=== PATIENT | male | born 1960 | race Caucasian/White ===

== ENCOUNTER 2016-12-08 23:35 | Inpatient (IN) | payer OTHER ==
--- NOTE | ~2016-12-08 | A ---
[facility] Nutrition Therapy DATE: 12/09/16 Patient: MARIE DORMAN Physician: CHAZ Address: [address] [facility] Room/Bed: [address] [place] [address], Zip: [place] [address] Admit Date: 12/09/16 Date of : 58 Height: 6 1 Weight: NUTRITIONAL ASSESSMENT: REASON: 4 NUTRITION RISK PT RE: WEIGHT LOSS, ALSO CONSULT PT IS 56 Y.O. MALE ADMITTED FOR PNEUMONIA PMH: COPD, TOBACCO ABUSE, RECENT (R) LUNG MASS Anthropometrics: 6'1", WT: 162# (74 KG), BMI: 21.4, 88%IBW Labs: GLU: 213, NA+:134, ALB: 3.3, AST: 55, ALT: 76, PRE-ALB: 13.2 Meds: ZOFRAN, LAXATIVE, NACL I/O & Bowel function: 600/400 Skin Integrity: DRY SKIN NOTED ALL OVER BODY Estimated Nutrition Needs: INCREASED NEEDS 2' WEIGHT LOSS NOTED, DECREASED PO INTAKE AND APPETITE, CURRENT CLINICAL CONDITION/CURRENT DIAGNOSIS Assessment: CHART REVIEWED AND EVENTS NOTED. PT SEEN FOR 4 NUTRITION RISK PT RE: WEIGHT LOSS, ALSO CONSULT RECEIVED. PT REPORTS DECREASED PO INTAKE 2' DECREASED APPETITE PAST MONTH D/T N/V. PT REPORTS LOSING ~10-15# BUT UNABLE TO KNOW TIME FRAME OF WEIGHT LOSS. PT ADDS UBW IS ~175-180#. PER RN AND CHART, (R) LUNG MASS REVEALED. THIS RD ENCOURAGED ADEQUATE KCAL AND PROTEIN INTAKE (SMALL FREQUENT MEALS + SUPPLEMENT INTAKE), PT AGREED TO ENSURE SHAKES TID W/MEALS, RD TO ORDER. PT REPORTED NO DIET QUESTIONS AT THIS TIME. RD TO FOLLOW. Dx: INADEQUATE PROTEIN-ENERGY INTAKE R/T DECREASED APPETITE, CURRENT DIAGNOSIS, CURRENT CLINICAL CONDITION AEB WEIGHT LOSS NOTED, PT REPORT ABOVE. Intervention: 1. ICJD-NH-PRXK DIGEST DIET 2. ENSURE SHAKES TID 3. RD CONSULT Monitoring, Evaluation and Goals: 1. ORAL INTAKE; CONSUME/TOLERATE >50% OF MEALS AND SUPPLEMENTS 2. WEIGHTS; PREVENT FURTHER UNINTENTIONAL WEIGHT LOSS 3. LABS; WNL MONITOR GOALS ABOVE Recommendations: [facility] Nutrition Therapy DATE: 12/09/16 Patient: MARIE DORMAN Physician: CHAZ Address: [address] Room/Bed: [address] [place] [address], Zip: [place] [address] Admit Date: 12/09/16 Date of : 58 Height: 6 1 Weight: 1. PLEASE ORDER STRAWBERRY OR HEBERT ENSURE SHAKES TID W/MEALS, PT REQUIRES ADDITIONAL PROTEIN AND KCAL 2. ADD REGULAR DIET TO CURRENT DIET ORDER 3. APPRECIATE FAMILY AND STAFF TO ENCOURAGE ADEQUATE PO INTAKE RD WILL F/U PER PROTOCOL PT IS MODERATELY COMPROMISED Respectfully, GREGORIO SANTOS MS, RD, LD Food and Nutritional Services [facility] cc: client file
--- NOTE | ~2016-12-08 | OR ---
Unit #: [id number] #: [id number] Patient: MARIE DORMAN [id number] [address] [address] [id number] MR#: [id number] NAME: MARIE DORMAN ROOM: 238 Date of Procedure: 12/10/2016 Admission Date: 12/09/2016 Surgeon: Akhil Torre M.D. : 1960 Attending Physician: Anna Rahman M.D. Primary Care Physician: Consuelo Beltran M.D. OPERATIVE REPORT PROCEDURE PERFORMED Flexible fiberoptic bronchoscopy. INDICATIONS FOR PROCEDURE Abnormal CAT scan. FINDINGS Tumor right upper lobe with near occlusion, certainly narrowing of the anterior and posterior segments. There is narrowing also right middle lobe. SEDATION MAC. COMPLICATIONS Zero. CONDITION AFTER PROCEDURE Stable to recovery room. DESCRIPTION OF PROCEDURE The patient was brought to the endoscopy suite and monitored for heart rate, blood pressure, saturations, and end-tidal CO2. Sedated via MAC. Anesthetized with 2% lidocaine in both nares. Viscous lidocaine was applied to his right naris. Bronchoscope was introduced without difficulty. Vocal cords were visualized. There were normal configuration motion, anesthetized x2. Main trachea was intubated. Main airways were anesthetized. Left-sided airways were unremarkable except evidence of chronic bronchitis. Right-sided airways showed significant tumor with obstruction anterior segment and narrowing of the posterior and apical segments of the right upper lobe. Right middle lobe was narrowed as well. There was also some evidence of submucosal involvement. This area was photographed, brushed, biopsied, and washed. Hemostasis was confirmed by observation. Bronchoscope was removed without difficulty, and the patient was in stable condition postprocedure. Dictated by... Akhil Torre M.D. ISMAEL/mikil Unit #: [id number] #: [id number] Patient: MARIE DORMAN TD: 12/10/2016 18:29 JOB #: [id number] OPERATIVE REPORT Page 1 of 1 X Akhil Torre MD PROCEDURE OPERATIVE NOTE
--- NOTE | ~2016-12-08 | CT2 ---
[facility] A Service of [facility] & [facility] RADIOLOGY TEXT RESULTS PATIENT: MARIE DORMAN LOCATION: C2A 238-01 : [birth year] UNIT #: [id number] AGE: [address]: Anna Rahman MD SEX: M ORDER DR: [id number] [facility] [address] [facility]. [place], [place] [address] [id number] I MR#: [id number] Acc #: [id number] NAME: MARIE DORMAN : 1960 SEX: M STUDY DATE/TIME: 12/09/2016 13:02 UNIT: C2A ROOM: 238 STUDY DESCRIPTION: CT Abd and Pelv W Cont Attending Physician: Anna Rahman M.D. Ordering Physician: Anna Rahman M.D. Primary Care Physician: Consuelo Beltran M.D. MEDICAL IMAGING REPORT This report is preliminary unless electronic signature is present EXAM CT abdomen and pelvis with contrast. HISTORY Nausea, vomiting, and hemoptysis x1 month, recently diagnosed with lung mass. TECHNIQUE Axial images performed through the abdomen and pelvis following IV and oral contrast. Multiplanar reconstructed images reviewed at a workstation. This CT exam was performed with one or more of the following radiation dose reduction techniques: automatic exposure control, adjustment of mA and/or kV according to patient size, and iterative reconstruction. FINDINGS ABDOMEN: The lung bases demonstrate emphysematous changes. Liver, gallbladder unremarkable. There is a 2.2 x 1.8 cm low-attenuation lesion within the spleen could represent an incidental benign lesion such as hemangioma, though given the patient's lung mass, metastatic lesion not excluded. Pancreas, kidneys and adrenal glands unremarkable. Fluid and food debris distends the stomach. Small bowel unremarkable. Moderate amount of colonic stool. Retroperitoneum unremarkable except for a few shotty lymph nodes. PELVIS: Bladder appears normal. The osseous structures unremarkable except for several Schmorl nodes in lower thoracic spine. Extrathoracic soft tissues appear normal. IMPRESSION 2.2 cm low-attenuation lesion in the anterior lateral aspect of the spleen probably represents an incidental lesion such as hemangioma though splenic metastasis not excluded though these are relatively uncommon until late in STS. [facility] A Service of [facility] & [facility] RADIOLOGY TEXT RESULTS PATIENT: MARIE DORMAN LOCATION: [facility] 238-01 : 58 UNIT #: [id number] AGE: [address]: Anna Rahmna MD SEX: M ORDER DR: disease progression. Dictated by... Cony Brewer M.D. THIS IS AN ELECTRONICALLY VERIFIED REPORT Cony Brewer M.D. at 12/10/2016 7:29 AM Olesya TD: 12/09/2016 23:12 JOB #: [id number] MEDICAL IMAGING REPORT Page 1 of 1 COPY
--- NOTE | ~2016-12-08 | CT71 ---
[facility] A Service of [facility] & [facility] RADIOLOGY TEXT RESULTS PATIENT: MARIE DORMAN LOCATION: C2A 238-01 : 58 UNIT #: [id number] AGE: [address]: Anna Rahman MD SEX: M ORDER DR: [id number] [facility] [address] [place], [place] [address] [id number] I MR#: [id number] Acc #: [id number] NAME: MARIE DORMAN : 1960 SEX: M STUDY DATE/TIME: 12/09/2016 12:56 UNIT: C2A ROOM: 238 STUDY DESCRIPTION: CT Head Wo Contrast Attending Physician: Anna Rahman M.D. Ordering Physician: Anna Rahman M.D. Primary Care Physician: Consuelo Beltran M.D. MEDICAL IMAGING REPORT This report is preliminary unless electronic signature is present EXAM Head CT without contrast HISTORY Nausea, vomiting and hemoptysis for one month. Recently diagnosed with a lung mass. The patient has an occipital headache with blurred vision for [address] exam was performed with one or more of the following radiation dose reduction techniques: automatic exposure control, adjustment of mA and/or kV according to patient size, and iterative reconstruction. FINDINGS Routine noncontrast head CT is reviewed. No previous. There is no displaced calvarial fracture. The mastoid air cells are clear. The visualized paranasal sinuses are clear. There is no evidence for acute intracranial hemorrhage or extraaxial fluid collection. The ventricles are normal in size and configuration. The kapoor-white junction is relatively well maintained. The basilar cisterns are patent. I believe there is ectasia of the right ICA terminus. The vascular anatomy is best further evaluated with an MR angiogram if the patient is a candidate. Of note, this study is being performed to evaluate for the possibility of intracranial metastatic disease, again if the patient is a candidate, this is best pursued with an MRI of the brain with and without contrast. Noncontrast head CT is relatively insensitive for intracranial metastatic disease. No intracranial mass effect is appreciated at this time. No acute cortical infarct is suspected. IMPRESSION 1. No acute intracranial abnormality is suspected. If there is concern [facility] A Service of [facility] & [facility] RADIOLOGY TEXT RESULTS PATIENT: MARIE DORMAN LOCATION: C2A 238-01 : [birth year] UNIT #: [id number] AGE: [address]: Anna Rahman MD SEX: M ORDER DR: for intracranial metastatic disease, and the patient is a candidate, I would recommend further evaluation with an MRI of the brain with and without contrast. 2. There is what is probably ectasia of the right ICA terminus but vascular anatomy would be better delineated with an MR angiogram ute of Duque. STAT * RESULT Dictated by... Marylou Mahan M.D. THIS IS AN ELECTRONICALLY VERIFIED REPORT Marylou Mahan M.D. at 12/09/2016 4:29 PM Cody TD: 12/09/2016 15:58 JOB #: [id number] MEDICAL IMAGING REPORT Page 1 of 1 COPY
--- NOTE | ~2016-12-08 | CO ---
Unit #: [id number] #: [id number] Patient: MARIE DORMAN [id number] [address] [address] [id number] I MR#: [id number] NAME: MARIE DORMAN ROOM: 238 Age: 56 Sex: M Admission Date: 12/09/2016 : 1960 Attending Physician: Anna Rahman M.D. Primary Care Physician: Consuelo Beltran M.D. Consultation Date: 12/09/2016 CONSULTATION REPORT REASON FOR EVAL Right lung mass; please evaluate. HISTORY OF PRESENT ILLNESS This 56-year-old gentleman with multiple decades of 2-3 packs smoking history started having cough, shortness of breath, hemoptysis. Was diagnosed as walking pneumonia and treated with antibiotics. Did not get better. Was evaluated with a CT scan, which showed a right-sided lung mass with postobstructive pneumonia. Was sent over and was admitted to this hospital. Today on questioning he says he is just short winded, has lost weight, and every time he coughs, there is severe right upper side chest wall pain. PAST MEDICAL HISTORY Otherwise, he has been overall healthy. Mild hypertension, acute on chronic bronchitis-type of picture but otherwise overall healthy. FAMILY HISTORY Positive for hypertension. SOCIAL HISTORY He has cut down on smoking and smokes about a pack a day. No alcohol usage. He is , and the is on her way, and I am going to discuss with her as soon as she arrives. ALLERGIES No known allergies. REVIEW OF SYSTEMS Mainly this right-sided chest pain, weight loss, decreased appetite, shortness of breath, cough, discomfort and fear. Otherwise, 6 or 8 systems were within normal limits. PHYSICAL EXAMINATION GENERAL: He is an asthenic gentleman. He is in pain due to a bout of cough in front of me. LUNGS: Crackles. Mild expiratory wheeze. CARDIOVASCULAR: Distant S1, S2. ABDOMEN: Scaphoid. No organomegaly. LETTER CARRIER: Grossly intact. RECTAL: No performed. DIAGNOSTIC STUDIES Unit #: [id number] #: [id number] Patient: MARIE DORMAN IMAGING: CT was reviewed. Right mid and superior hilar mass, right paratracheal, carinal adenopathy and additional right upper lobe lesions. Narrowing of the right pulmonary artery branches. A 1.9 cm lesion in the spleen and small pericardial effusion. NOTE: The meaning of this was explained to him and need for further evaluation, including bronchoscopy. MRI of the brain and PET scan were explained. I will wait for the to arrive and will discuss further and await Dr. Justin Gastelum's evaluation. Dictated by... Saleem Mercado/ananda TD: 12/09/2016 13:41 JOB #: [id number] CONSULTATION REPORT Page 1 of 1 X Derick Grossman MD X CONSULTATION REPORT
--- NOTE | ~2016-12-08 | CO ---
Unit #: [id number] #: [id number] Patient: MARIE DORMAN [id number] [address] [place], [place] [address] [id number] I MR#: [id number] NAME: MARIE DORMAN ROOM: 238 Age: 56 Sex: M Admission Date: 12/09/2016 : 1960 Attending Physician: Anna Rahman M.D. Primary Care Physician: Consuelo Beltran M.D. CONSULTATION REPORT HISTORY OF PRESENT ILLNESS Mr. Dorman is a 56-year-old white male, who is admitted for right lung mass. The patient was in his normal state of health until about one month ago when he developed nausea and vomiting along with hemoptysis. He had a chest x-ray performed at [facility] about 3 weeks ago which showed persistent right midlung opacity and right hilar prominence. He was treated with antibiotics, steroids, muscle relaxants, and an inhaler and told to follow up with primary care physician and insurance account manager. He has symptoms persisted and he presented back to the emergency room. CT scan showed a right suprahilar mass with postobstructive pneumonia. He continued to cough up blood. He was admitted. PAST MEDICAL HISTORY Significant for some COPD. ALLERGIES He has no known allergies. HOME MEDICATIONS Ventolin inhaler which he uses about t.i.d. or q.i.d., some Levaquin, muscle relaxant meant what had been on steroids in the past. FAMILY HISTORY Positive for hypertension. SOCIAL HISTORY Lives with . Started smoking at age 9 up to 3 packs a day, now less than 1 pack a day. Drinks occasional alcohol. Denies illicit drugs. 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 No history of TB or fungal disease of the lung. REVIEW OF SYSTEMS Notable for weight loss, right-sided chest pain, hemoptysis. Otherwise, 10-point systems negative. PHYSICAL EXAMINATION GENERAL: White male, in no distress, sitting up in bed. VITAL SIGNS: Blood pressure is 98/66, pulse is 82, respiratory rate is 28, afebrile. HEENT: Normocephalic and atraumatic. Pupils are equal, round, and reactive. Sclerae nonicteric. Nasal passages patent. Posterior pharynx clear. Mucous membranes moist. NECK: Supple. Trachea midline. No cervical or supraclavicular lymphadenopathy. Unit #: [id number] #: [id number] Patient: MARIE DORMAN LUNGS: Relatively clear bilaterally, occasional rhonchi. CARDIAC: Heart sounds distant. Regular rate and rhythm. Could not appreciate murmur, rub, or gallop. ABDOMEN: Nontender. Bowel sounds present. No hepatosplenomegaly. EXTREMITIES: Without clubbing, cyanosis, or edema. NEUROLOGIC: Awake, alert, and oriented x3. Cranial nerves intact. Muscle strength symmetric bilaterally. Affect calm. SKIN: Warm and dry. DIAGNOSTIC STUDIES LABORATORY RESULTS: Reviewed. Coags normal. CBC unremarkable. BMP unremarkable. Glucose was 213. Sodium 134. AST and ALT mildly elevated at 55 and 76 respectively. IMPRESSION 1. Right super hilar mass likely bronchogenic cancer. 2. Chronic obstructive pulmonary disease. 3. Tobacco abuse. 4. Hemoptysis. 5. Postobstructive pneumonia. 6. Hypertension. 7. Mild hyponatremia. 8. Mild elevation of liver function tests. PLAN We will need bronchoscopy for tissue diagnosis. I have discussed risks and benefits, and informed consent given. Agree with the treatment with inhaled bronchodilators, steroids, and covering with antibiotics. Dictated by... Gurjit Gastelum M.D. MIKE/quinn TD: 12/09/2016 23:28 JOB #: [id number] CONSULTATION REPORT Page 1 of 1 X Gurjit Gastelum MD X CONSULTATION REPORT
--- NOTE | ~2016-12-08 | DS ---
Unit #: [id number] #: [id number] Patient: MARIE MORENO [id number] [address] [address] [id number] I MR#: [id number] NAME: MARIE MORENO ROOM: 238 Age: 56 Sex: M Admission Date: 12/09/2016 : 1960 Discharge Date: 12/11/2016 Attending Physician: Anna Rahman M.D. Primary Care Physician: Consuelo Beltran M.D. DISCHARGE SUMMARY PRIMARY CARE PROVIDER Consuelo Beltran M.D. PRINCIPAL DIAGNOSES 1. Right suprahilar lung mass, status post biopsy with pending pathology. There is associated right upper lobe nodules x3 and associated pulmonary artery encasement. 2. Acute exacerbation of chronic obstructive pulmonary disease. 3. Postobstructive pneumonia. 4. Hemoptysis secondary to #1. 5. Vitiligo. 6. Tobaccoism. 7. Severe protein malnutrition with prealbumin of 13.2. CONSULTANTS Dr. Grossman, Oncology; Dr. Gastelum, Pulmonology. PROCEDURES 1. Flexible fiberoptic bronchoscopy. 2. Tumor of the right upper lobe with near occlusion and/or narrowing of the anterior and posterior segments. There is narrowing of the right middle lobe noted. Again, pathology is currently pending. 3. CT of the head without contrast on 12/09/2016 with no acute abnormality, ectasia of the right ICA terminus. 4. CT scan of the abdomen and pelvis with contrast on 12/09/2016 with a 2.2 cm low attenuation lesions in the anterolateral aspect of the spleen likely consistent with hemangioma. CLINICAL HISTORY AND HOSPITAL COURSE Mr. Moreno is a really nice 56-year-old male, who presents to emergency department with one month progressive shortness of breath, nausea, vomiting, and new onset hemoptysis. This was in conjunction with weight loss and diaphoresis. CT scan done in the emergency department revealed a large right suprahilar lung mass concerning for underlying malignancy with associated right upper lobe metastases. The patient was admitted for further evaluation. Dr. Gastelum was consulted as was Dr. Grossman. The patient subsequently underwent bronchoscopy with findings of a right lung mass. The biopsy was lesioned and bronchial washings and brushings are still currently pending. The patient will follow up with Dr. Gastelum and Dr. Grossman regarding pathology and initiate appropriate therapy on an outpatient basis. We will also require outpatient PET scan. Unit #: [id number] #: [id number] Patient: MARIE MORENO The patient had mild associated COPD exacerbation, but this is improved. We will treat with medications as outlined below. CT scan also revealed a postobstructive pneumonia, which we will treat with Augmentin as an outpatient. The patient will be discharged home today. DISCHARGE CONDITION Stable. DISCHARGE STATUS Discharged to home. DISCHARGE MEDICATIONS Prednisone 4 tablets daily for 2 days, then 3 tablets for 2 days, then 2 tablets for 2 days, then 1 tablet for 2 days and discontinue; Augmentin 875 mg p.o. b.i.d. for 6 days; Symbicort 160/4.5 mcg 2 puffs b.i.d.; Tessalon Perles 200 mg one tablet p.o. t.i.d. p.r.n. for cough and #90 given with no refill; Tussionex suspension 5 mL p.o. q.8 hours p.r.n. for cough, quantity sufficient for one week with one refill; nicotine patch to skin one daily; albuterol inhaler 1 to 2 puffs every 4 hours p.r.n. for shortness of breath; Cadet 5/325 one tablet p.o. q.6 hours p.r.n. for pain. DISCHARGE INSTRUCTIONS The patient was instructed to follow a regular diet. He can increase activity as tolerated. To refrain from any further tobacco use. FOLLOWUP The patient will follow up with Dr. Grossman in 1 to 2 weeks. The patient has a followup appointment on 12/15/2016. The patient will follow up with Dr. Gastelum in 2 weeks. Dictated by... Anna Rahman M.D. CAROLE/quinn TD: 12/14/2016 00:55 JOB #: [id number] DISCHARGE SUMMARY Page 1 of 1 X Anna Rahman MD DISCHARGE SUMMARY
--- NOTE | ~2016-12-08 | HP ---
Unit #: [id number] #: [id number] Patient: MARIE DORMAN [id number] [address] [address] [id number] I MR#: [id number] NAME: MARIE DORMAN ROOM: 238 Age: 56 Sex: M Admission Date: 12/08/2016 : 1960 Attending Physician: Carolyne Ortiz M.D. Primary Care Physician: Consuelo Beltran M.D. HISTORY AND PHYSICAL CHIEF COMPLAINT Right lung mass. HISTORY This pleasant 56-year-old male was transferred from [facility] emergency department for a right lung mass. The patient states that he was well until one month prior to admission when he developed nausea, vomiting, along with hemoptysis. Notes chest pain with coughing, diaphoresis, weight loss and some wheezing. He had a chest x-ray performed at [facility] about three weeks ago showing a persistent right mid lung opacity and stable right perihilar prominence. He was treated with antibiotics, steroids, muscle relaxants and inhaler, and told to follow up with a primary care physician and/or audio production manager. He continues with symptoms, worse over the past week, and went back to the emergency department last evening. A CT scan was performed showing the right lung mass which will be dictated as below. PAST MEDICAL HISTORY Likely COPD. ALLERGIES None. HOME MEDICATIONS Inhaler. What sounds to be Levaquin. The patient finished a course of steroids recently. Is on a muscle relaxant. FAMILY HISTORY Hypertension. SOCIAL HISTORY The patient lives with his . He was smoking up to three packs per day of tobacco but now is smoking less than one pack per day. Drinks occasional alcohol, does not use illicit drugs. REVIEW OF SYSTEMS Notable for weight loss, right chest pain, hemoptysis, tobacco use. All other systems were reviewed and are negative. PHYSICAL EXAMINATION GENERAL APPEARANCE: Pleasant, thin, 56-year-old male who looks to be uncomfortable when he coughs. O2 saturation 93% on room air. VITAL SIGNS: Temperature 97.4, pulse 82, respirations 21, blood pressure Unit #: [id number] #: [id number] Patient: MARIE DORMAN 98/66. HEENT: Eyes PERRLA. Extraocular muscles are intact. Pharynx is benign, edentulous. NECK: Supple without adenopathy or thyromegaly. CHEST: Somewhat diminished but no definite rhonchi or rales that I can hear. CARDIAC: Normal S1 and S2 without murmur. ABDOMEN: Bowel sounds are present. Mild hepatosplenomegaly on exam. Nontender. No masses. EXTREMITIES: Without edema. Pedal pulses are present. SKIN: Notable for vitiligo. NEUROLOGIC: The patient is awake, alert, oriented. Cranial nerves are intact. Equal strength throughout. DIAGNOSTIC STUDIES LABORATORY: Labs prior to arrival - hematocrit is 47.4, normal white count and platelet count. Negative cardiac enzymes. SMA-12 - sodium 134, BUN 23, creatinine 1, ALT 92 with an AST of 75. Protein is 8.8. IMAGING: CT scan - right mid and superior hilar mass with right paratracheal and carinal adenopathy. Three additional right upper lobe lesions concerning for lung cancer with mets. Infiltrates in the right apex and posterior right upper lobe. Narrowing of the right pulmonary artery branches. 1.9 cm lesion in the spleen. Small pericardial effusion. CARDIOVASCULAR: EKG - sinus rhythm, rate 88, normal appearing. ASSESSMENT 1. Right lung mass concerning for new diagnosis of primary metastatic lung cancer with postobstructive infiltrates noted. 2. Likely chronic obstructive pulmonary disease. 3. Tobacco abuse. PLANS 1. Antibiotics and bronchodilators. 2. Pulmonary consultation. 3. Check procalcitonin level. 4. SCDs for DVT prophylaxis. 5. IV fluids for supportive treatment. Dictated by Carolyne Ortiz M.D. AML/df TD: 12/09/2016 06:42 JOB #: [id number] Unit #: [id number] #: [id number] Patient: MARIE DORMAN HISTORY AND PHYSICAL Page 1 of 1 X Carolyne Ortiz MD HISTORY AND PHYSICAL
[2016-12-09] MEDS ORDERED: [UNRECOGNIZED DRUG - REMARK] (01:39)
[2016-12-09 09:20] LABS: BASOPHIL% 0.2 % (0-2.5); HEMATOCRIT 42.9 % (38.0-50.0); HEMOGLOBIN 14.6 gm/dL (13.0-16.0); LYMPHOCYTE# 0.9 X10e3 (1.0-3.5); LYMPHOCYTE% 12.9 % (17.0-45.0); MEAN CELL VOLUME 95.2 FL (83-96); MEAN CORPUSCULAR HEMOGLOBIN 32.4 PG (28-34); MEAN PLATELET VOLUME 8.4 FL (6.5-11.5); MONOCYTE# 0.3 X10e3 (0-1.0); MONOCYTE% 3.8 % (3.0-12.0); NEUTROPHIL# 5.5 X10e3 (1.5-7.1); NEUTROPHIL% 83.1 % (40-75); PLATELET COUNT 202 X10e3 (140-420); RED BLOOD COUNT 4.51 X10e (3.90-5.60); RED CELL DISTRIBUTION WIDTH 12.5 % (11.0-15.5); WHITE BLOOD COUNT 6.6 X10e3 (4.0-10.5)
[2016-12-09 09:22] LABS: DIFF IND NO
[2016-12-09 09:34] LABS: INR 1.1; PARTIAL THROMBOPLASTIN TIME 24.5 SECONDS (23.5-31.3); PROTHROMBIN TIME (PATIENT) 11.6 SECONDS (10.0-11.7)
[2016-12-09 10:30] LABS: ALBUMIN SERUM 3.3 g/dL (3.5-5.0); BILIRUBIN,TOTAL 0.8 mg/dL (0.2-2.0); BUN/CREATININE RATIO 26.66; CALCIUM SERUM 8.5 mg/dL (8.4-10.2); CREATININE SERUM 0.6 mg/dL (0.6-1.4); GLOM FILT RATE Estimated 111.7 mL/min (>60); POTASSIUM 4.7 mmol/L (3.5-5.1); PROTEIN TOTAL SERUM 7.4 g/dL (6.0-8.3)
[2016-12-11 06:09] LABS: HEMATOCRIT 35.6 % (38.0-50.0); MEAN CELL VOLUME 95.6 FL (83-96); MEAN CORPUSCULAR HEMOGLOBIN 32.4 PG (28-34); MEAN CORPUSCULAR HGB CONC 33.9 g/dL (30-36); MEAN PLATELET VOLUME 8.4 FL (6.5-11.5); RED BLOOD COUNT 3.72 X10e (3.90-5.60); RED CELL DISTRIBUTION WIDTH 12.3 % (11.0-15.5)
[2016-12-11 06:11] LABS: WHITE BLOOD COUNT 10.2 X10e3 (4.0-10.5)
[2016-12-11 06:12] LABS: HEMOGLOBIN 12.1 gm/dL (13.0-16.0)
[2016-12-11 06:58] LABS: CALCIUM SERUM 8.3 mg/dL (8.4-10.2); CREATININE SERUM 0.6 mg/dL (0.6-1.4); GLOM FILT RATE Estimated 111.7 mL/min (>60); POTASSIUM 4.2 mmol/L (3.5-5.1)
[2016-12-11] MEDS ORDERED: SYMBICORT INH (14:15)
[2016-12-11] MEDS ORDERED: PREDNISONE10 M1 (14:16)
[2016-12-11] MEDS ORDERED: AUGMENTIN PO (14:16)
[2016-12-11] MEDS ORDERED: TESSALON PERLE100 M1 PO (14:17)
[2016-12-11] MEDS ORDERED: TUSSIONEX PENN473 ML PO (14:18)
[2016-12-11] MEDS ORDERED: NICOTINE PATCH1 EACH TD (14:19)
[2016-12-11] MEDS ORDERED: NICODERM CQ1 EACH TD (14:20)
[2016-12-11] MEDS ORDERED: ALBUTEROL17 GM INH (14:22)
[2016-12-11] MEDS ORDERED: LORTAB 5-325 M1 EACH PO (14:23)
[2017-02-11] MEDS ORDERED: FLORASTOR PO (15:33)
[2017-02-11] MEDS ORDERED: ATENOLOL25 MG PO (15:34)
[2017-02-11] MEDS ORDERED: FAMOTIDINE PO (15:34)
== END 2016-12-11 15:40 | disposition home or self-care (01) | DRG 180 ==
LOC: CEDOF 23:35 → UNDOADMIN 23:35 → CEDOF 12-09 00:50 → C2A 12-09 00:50 → CEDOF 12-09 01:40 → C2A 12-09 07:04
PROVIDERS: Internal Medicine
PROC: 0BB48ZX Excision of Right Upper Lobe Bronchus, Via Natural or Artificial Opening Endoscopic, Diagnostic (ICD-10-PCS; principal; 2016-12-10 10:14)
PROC: 0BB48ZX Excision of Right Upper Lobe Bronchus, Via Natural or Artificial Opening Endoscopic, Diagnostic (ICD-10-PCS; 2016-12-10 10:14)
DX: C34.01 Malignant neoplasm of right main bronchus (principal); E43 Unspecified severe protein-calorie malnutrition; J18.9 Pneumonia, unspecified organism; E87.1 Hypo-osmolality and hyponatremia; J44.1 Chronic obstructive pulmonary disease with (acute) exacerbation; R04.2 Hemoptysis; I25.10 Atherosclerotic heart disease of native coronary artery without angina pectoris; F17.210 Nicotine dependence, cigarettes, uncomplicated; L80 Vitiligo; Z82.49 Family history of ischemic heart disease and other diseases of the circulatory system
CPT/HCPCS: 70450; 74177; 80048; 80053; 82308; 84134; 84443; 85025; 85027; 85610; 85730; 87070; 87102; 87116; 87205; 87206; 88104; 88108; 88305; 88342; 94640; 94664; 94760; J0171; J2543; J2920; J3010; Q9967